=== PATIENT | male | born 1990 | race Caucasian/White ===

== ENCOUNTER 2024-03-16 17:29 | Emergency (ER) | payer BC, SELFPAY ==
[2024-03-16 17:30] VITALS: BP 133/94
[2024-03-16 17:49] LABS: Urine Albumin Negative (Neg - Trace); Urine Bilirubin Negative (Negative); Urine Character Clear (Clear); Urine Color Yellow; Urine Glucose Negative (Negative); Urine Ketone Negative (Negative); Urine Leukocyte Negative (Negative); Urine Nitrite Negative (Negative); Urine Occult Blood Negative (Negative); Urine Urobilinogen Negative (Neg - 1+)
[2024-03-16 18:03] LABS: Hematocrit 44.6 % (39.0-52.0); Hemoglobin 15.1 g/dL (13.0-18.0); Mean Corp Hgb Conc. 33.9 g/dL (33.0-37.0); Mean Corpuscular Hgb 29.3 pg (27.0-31.0); Mean Corpuscular Volume 86.6 fL (80.0-94.0); Mean Platelet Volume 9.8 fL (7.4-10.4); Platelet Count 330 10^3/uL (130-400); Red Blood Cell Count 5.15 10^6/uL (4.70-6.10); Red Cell Dist. Width 13.1 % (11.5-14.5); White Blood Cell Count 9.6 10^3/uL (4.8-10.8)
[2024-03-16 18:05] LABS: ALT (SGPT) 57 U/L (0-50); AST (SGOT) 52 U/L (17-59); Albumin 4.7 g/dl (3.5-5.0); Alkaline Phosphatase 66 U/L (38-126); Blood Urea Nitrogen 13 mg/dl (9-20); Carbon Dioxide 22 mmol/L (22-30); Chloride 106 mmol/L (98-107); Glucose 101 mg/dl (70-99); Lipase 211 U/L (23-300); Potassium 3.9 mmol/L (3.5-5.1); Sodium 142 mmol/L (135-145); Total Bilirubin 0.5 mg/dl (0.2-1.3); Total Protein 7.3 g/dl (6.3-8.2); eGFR > 60.00
[2024-03-16 18:25] LABS: Eosinophils 1 % (0-6); Lymphocytes 49 % (20-51); Monocytes 4 % (2-9); Segmented Neutrophils 38 % (42-75)
[2024-03-16 18:26] LABS: Atypical Lymphocytes 8 %; Platelets Checked Yes
[2024-03-16 18:27] LABS: Anisocytosis Slight; Hypochromasia 1+; Normal RBC Morphology No; Total Cells Counted 100
[2024-03-16 19:37] VITALS: BMI 30.2
[2024-03-16 20:59] VITALS: BP 136/85
--- NOTE | 2024-03-16 23:17 | ED.GENMED ---
History of Present Illness
General
Chief Complaint: Flank Pain
Source: patient
Exam Limitations: none
Time Seen by Provider: 03/16/24 18:50
Nursing documentation reviewed up to this point in time: agreed with
History of Present Illness
History of Present Illness:
Patient to ED wtih complaint of left flank pain. states he has had discomfort for the past few days by today pain became worse. NO prior history of same. Brought self to ED. Denies fever/chills, n/v/d. No difficulty with urination.
Past History
Past History
ED Past Medical History: None
Patient has exhibited threatening behavior?: No
Social History
Tobacco: Non-smoker
Personal: Single
Living: with family
Review of Systems
Review of Systems
Allergies reviewed?: Yes
All Other Systems: ROS reviewed and negative except as documented in HPI and ROS
Constitutional: Reports no symptoms
EENT: Reports no symptoms
Respiratory: Reports no symptoms
Cardiac: Reports no symptoms
ABD/GI: Reports no symptoms
: Reports flank pain
Musculoskeletal: Reports no symptoms
Skin: Reports no symptoms
Neurological: Reports no symptoms
Psychiatric: Reports no symptoms
Phy Exam
General Physical Exam
General Presentation: well appearing and no apparent distress
Cardiovascular Exam
Cardiovascular Exam: regular rate/rhythm and no edema
Pulmonary Exam
Pulmonary Exam: lungs clear, no respiratory distress and chest non tender
Gastrointestinal Exam
Gastrointestinal Exam: normal bowel sounds, non tender, soft, no organomegaly, non distended and no cva tenderness
Musculoskeletal Exam
Musculoskeletal Exam: full ROM and neuro vasc intact
Skin Exam
Skin Exam: normal color
Psychiatric Exam
Psychiatric Exam: normal mood/affect
Course
Orders/Labs/Results
Orders:
Orders
03/16/24 17:38
Urinalysis Reflex To Culture Urgent
Date Specimen was Collected: 03/16/24
Time Specimen was Collected: 17:34
03/16/24 17:40
CBC/With Diff [Complete Blood Count/With Diff] Urgent
CMP [Comprehensive Metabolic Panel] Urgent
Lipase Urgent
Manual Differential Urgent
03/16/24 19:32
CT Abd/pel Without Iv Or Oral Urgent
Comment:
Reason For Exam: left flank pain
Abnormal Lab Results
03/16/24
17:40
Segmented Neutrophils 38 L %
(42-75)
Glucose 101 H mg/dl
(70-99)
ALT 57 H U/L
(0-50)
03/16/24 17:40
03/16/24 17:40
Vital Signs
Initial and Last Documented VS:
Initial Vital Signs
Temp Pulse Resp BP Pulse Ox
98.5 F 105 19 133/94 95
03/16/24 17:30 03/16/24 17:30 03/16/24 17:30 03/16/24 17:30 03/16/24 17:30
Last Documented Vital Signs
Temp Pulse Resp BP Pulse Ox
98.5 F 73 18 136/85 98
03/16/24 17:30 03/16/24 20:59 03/16/24 20:59 03/16/24 20:59 03/16/24 20:59
*Radiology
Radiology exam reviewed: radiology read reviewed
*Pulse Oximetry
Patient hypoxic: no
*Critical Care Note
Total Time (30-74mins, 75-104mins- exclusive of procedures): Not Applicable
ED Attending Note
-
Portions of this chart may have been created with voice recognition software.� Occasional wrong word or��sound alike� substitutions may have occurred due to the inherent limitations of voice recognition software.
Discharge Plan
Departure
Patient Disposition: Home (Routine Discharge)
Date of Disposition: 03/16/24
Time of Disposition: 21:47
Patient with high blood pressure during this ER visit?: No
Condition: Good
Covid-19: Not Applicable
Discharge Problem:
Flank pain
Instructions: Flank Pain (DC)
Referrals:
UNKNOWN - PT DOES,NOT KNOW [Family Provider] -
Activity Restrictions/Additional Instructions:
As we discussed, there is a small nodule on the right lower lobe of your lung. This will need to be reassessed in approximately 6 mos. Follow up with your family doctor for further evaluation.
Interventions
Interventions:
*Risk Screen - Suicide Last Done: 03/16/24 19:32
*General Assessment Last Done: 03/16/24 19:32
*Neglect/Abuse Screening Last Done: 03/16/24 19:32
ED- Fall Risk Assessment Last Done: 03/16/24 19:33
*ED COVID-19 Vaccine History Last Done: 03/16/24 19:32
*Nursing Disposition Last Done: 03/16/24 21:56
QM-Uvquze-Uboyzylevf Assessment Last Done: 03/16/24 19:36
ED-Male Genitourinary Assessment Last Done: 03/16/24 19:36
Discharge Date and Time
Discharge Date/Time: 03/16/24 21:57
Print Language: [id number]
== END 2024-03-16 21:57 | disposition home or self-care (01) ==
LOC: EMR 17:29
PROVIDERS: EMERGENCY PHYSICIAN Emergency Medicine
DX: R10.9 Unspecified abdominal pain (principal); R91.1 Solitary pulmonary nodule; I10 Essential (primary) hypertension
CPT/HCPCS: 99284; 74176; 80053; 81003; 83690; 85025